=== PATIENT | male | born 1980 ===

== ENCOUNTER → 2017-07-23 | Outpatient (REF) ==
--- NOTE | 2017-07-23 16:51 | REP ---
Partial lumbar spine series: Three views. History: Degenerative disc disease. Findings: There is a mild dextroconvex curvature in the lumbar spine. Pedicles and posterior elements are intact. Vertebral body heights are preserved. Disc spaces are maintained. Alignment is otherwise normal. Psoas margins are symmetric. Sacrum and SI joints are intact. Impression: Mild dextroconvex upper lumbar curvature. Otherwise negative lumbar spine radiographs. Signed by James Persaud MD 07/23/2017 05:07 P
== END ==
LOC: M SMT 14:17
PROVIDERS: ATTEND Internal Medicine
DX: M40.56 Lordosis, unspecified, lumbar region (principal)